=== PATIENT | female | born 2000 | race Hispanic/Latino ===

== ENCOUNTER 2021-12-15 23:46 | Day surgery (SDC) | payer OTHER, SELFPAY ==
[2021-12-16 00:20] VITALS: BMI 37.5
== END 2021-12-16 01:09 | disposition home or self-care (01) ==
LOC: CSHLD/OP 23:46
PROVIDERS: ATTEND Obstetrics & Gynecology
DX: O36.8120 Decreased fetal movements, second trimester, not applicable or unspecified (principal); O99.891 Other specified diseases and conditions complicating pregnancy; R10.2 Pelvic and perineal pain; Z3A.23 23 weeks gestation of pregnancy

== ENCOUNTER 2021-12-19 21:57 | Emergency (ER) | payer OTHER ==
[2021-12-20 14:16] LABS: SARS-CoV-2 PCR by NAA Not Detected (NotDetected)
== END 2021-12-19 23:05 | disposition home or self-care (01) ==
LOC: CSHERS 21:57
DX: J06.9 Acute upper respiratory infection, unspecified (principal); Z20.822 Contact with and (suspected) exposure to COVID-19; Z79.899 Other long term (current) drug therapy
CPT/HCPCS: 87804; 99283; U0003; U0005

== ENCOUNTER 2021-12-21 20:06 | Emergency (ER) | payer MEDICAID | END 2021-12-21 21:09 | disposition home or self-care (01) | LOC: CSHERS 20:06 | DX: O99.512 Diseases of the respiratory system complicating pregnancy, second trimester (principal); J32.1 Chronic frontal sinusitis; O99.891 Other specified diseases and conditions complicating pregnancy; H92.03 Otalgia, bilateral; Z3A.23 23 weeks gestation of pregnancy | CPT/HCPCS: 99283 ==

== ENCOUNTER 2022-04-04 10:16 | Outpatient (CLI) | payer OTHER | END 2022-04-04 10:17 | disposition home or self-care (01) | LOC: CSHLAB 10:16 | PROVIDERS: ATTEND Advanced Practice Midwife | DX: Z20.822 Contact with and (suspected) exposure to COVID-19 (principal) | CPT/HCPCS: 87811 ==

== ENCOUNTER 2022-04-05 18:03 | Inpatient (IN) | payer OTHER ==
[~2022-04-05 18:03] MED LIST: Bupivacaine HCl 0.5%/Epinephrine 1:200,000/PF 30 ml Vial ONE; Bupivacaine/Epinephrine 0.25% 30 ML VIAL ONE; ePHEDrine Sulfate 50 MG/10 ML VIAL ONE
[2022-04-05 18:56] VITALS: BMI 41.0
[2022-04-05] MEDS ORDERED: Ondansetron PF 4 MG/2 ML Vial IVP PRN (20:13)
[2022-04-05] MEDS ORDERED: hydrALAZINE 20 MG/ML VIAL SLOW IVP PRN (20:13)
[2022-04-05] MEDS ORDERED: Ibuprofen 800 MG TAB PO PRN (20:13)
[2022-04-05] MEDS ORDERED: Promethazine HCl 25 MG/ML VIAL IM PRN (20:13)
[2022-04-05] MEDS ORDERED: Butorphanol Tartrate 1 MG/ML VIAL SLOW IVP PRN (20:13)
[2022-04-05] MEDS ORDERED: HYDROcodone/Acetaminophen 5/325 mg Tablet PO PRN (20:13)
[2022-04-05] MEDS ORDERED: Methylergonovine 0.2 MG/ML VIAL IM PRN (20:13)
[2022-04-05] MEDS ORDERED: Lidocaine 1% (PF) 30 ML VIAL SC PRN (20:13)
[2022-04-05] MEDS ORDERED: Diphenoxylate HCl/Atropine Tablet PO PRN (20:13)
[2022-04-05] MEDS ORDERED: Acetaminophen 500 MG TAB PO PRN (20:13)
[2022-04-05] MEDS ORDERED: Misoprostol 200 MCG TAB PR PRN (20:13)
[2022-04-05] MEDS ORDERED: Carboprost 250 MCG/ML AMP IM PRN (20:13)
[2022-04-05] MEDS ORDERED: Penicillin G Potassium 5 MILL.UNITS in Sodium Chloride 0.9% 100 ML IVPB SCH (20:15)
[2022-04-05] MEDS ORDERED: NS w/ Oxytocin 30 units 500 ML IV SCH (20:15)
[2022-04-05] MEDS: Misoprostol 100 MCG TAB VAG SCH (20:33)
[2022-04-05 20:58] LABS: Hemoglobin 10.9 g/dL (12.0-15.5); Mean Corpuscular HGB CONC 32.9 g/dL (32.0-36.0); Mean Corpuscular Hemoglobin 26.8 pg (27.0-33.0); Mean Corpuscular Volume 81.3 fl (81.6-98.3); Mean Platelet Volume 9.8 fl (7.4-10.4); Platelet Count 348 10x3/uL (150-450); RBC Distribution Width 14.9 % (11.5-14.5); Red Blood Cell (RBC) Count 4.07 10x6/uL (3.90-5.03); White Blood Cell (WBC) Count 10.4 10x3/uL (3.5-10.5)
[2022-04-05 21:29] LABS: Syphilis Antibody Nonreactive (Nonreactive); Syphilis Antibody Index 0.08 S/CO (<1.00 Non-Reactive)
[2022-04-05 21:29] LABS: Hep B Surf Ag Non-Reactive S/CO (NonReactive)
[2022-04-05 21:43] LABS: HBSAg Index 0.24 S/CO (0-0.99)
[2022-04-06] MEDS: Penicillin G 2.5 MILL.units 2.5 MILL.UNITS in Premix Bag 1 BAG IVPB SCH ×6 (00:40→22:06)
[2022-04-06] MEDS: Misoprostol 100 MCG TAB VAG SCH ×3 (01:56→05:40)
[2022-04-06] MEDS ORDERED: Fentanyl 2 mcg/Bup 0.1% Cadd 100 ML ONE (10:14)
[2022-04-06] MEDS ORDERED: diphenhydrAMINE 50 MG/ML VIAL IVP PRN (11:10)
[2022-04-06] MEDS ORDERED: Ondansetron PF 4 MG/2 ML Vial IVP PRN (11:10)
[2022-04-06] MEDS ORDERED: ePHEDrine Sulfate 50 MG/10 ML VIAL SLOW IVP PRN (11:10)
[2022-04-06] MEDS ORDERED: Lactated Ringer's 500 ML IV PRN (11:10)
[2022-04-06] MEDS ORDERED: Naloxone HCl 0.4 mg/ml Vial IVP PRN ×2 (11:10)
[2022-04-06] MEDS ORDERED: Promethazine HCl 25 MG/ML VIAL IM PRN (11:10)
[2022-04-06] MEDS ORDERED: Moisturizing Cream (Eucerin) 113 GM JAR TOP PRN (11:10)
[2022-04-06] MEDS ORDERED: Communication Order-Pharmacy FS SCH (11:15)
[2022-04-06] MEDS ORDERED: Fentanyl 100 MCG/2 ML VIAL ONE (11:30)
[2022-04-06] MEDS: Fentanyl 2 mcg/Bupivacaine 0.1% Cassette 100 ML EPIDURAL SCH ×2 (16:47→23:30)
[2022-04-06] MEDS ORDERED: Famotidine/PF 20 mg/2ml Vial ONE (19:20)
[2022-04-06] MEDS ORDERED: CEFAZOLIN 2 GM VIAL ONE (19:20)
[2022-04-07] MEDS: Penicillin G 2.5 MILL.units 2.5 MILL.UNITS in Premix Bag 1 BAG IVPB SCH (02:13)
[2022-04-07] MEDS ORDERED: Lidocaine 1% (PF) 30 ML VIAL ONE (04:06)
[2022-04-07] MEDS ORDERED: Misoprostol 200 MCG TAB ONE (04:55)
[2022-04-07] MEDS ORDERED: Carboprost 250 MCG/ML AMP ONE (04:56)
[2022-04-07] MEDS ORDERED: Methylergonovine 0.2 MG/ML VIAL ONE (04:56)
[2022-04-07] MEDS ORDERED: Tranexamic Acid 1,000 MG/10 ML VIAL ONE (04:59)
[2022-04-07] MEDS ORDERED: Bisacodyl 10 MG SUPP PR PRN (05:35)
[2022-04-07] MEDS ORDERED: hydrALAZINE 20 MG/ML VIAL SLOW IVP PRN (05:35)
[2022-04-07] MEDS ORDERED: Ondansetron PF 4 MG/2 ML Vial IVP PRN (05:35)
[2022-04-07] MEDS ORDERED: NS w/ Oxytocin 30 units 500 ML IV SCH (05:35)
[2022-04-07] MEDS ORDERED: Milk Of Magnesia 30 ML UDCUP PO PRN (05:35)
[2022-04-07] MEDS ORDERED: Promethazine HCl 25 MG/ML VIAL IM PRN (05:35)
[2022-04-07] MEDS ORDERED: diphenhydrAMINE 25 MG CAP PO PRN (05:35)
[2022-04-07 05:44] LABS: Hemoglobin 12.5 g/dL (12.0-15.5); Mean Corpuscular HGB CONC 32.4 g/dL (32.0-36.0); Mean Corpuscular Hemoglobin 26.4 pg (27.0-33.0); Mean Corpuscular Volume 81.6 fl (81.6-98.3); Platelet Count 250 10x3/uL (150-450); RBC Distribution Width 15.8 % (11.5-14.5); Red Blood Cell (RBC) Count 4.73 10x6/uL (3.90-5.03); White Blood Cell (WBC) Count 18.7 10x3/uL (3.5-10.5)
[2022-04-07 05:55] LABS: INR-International Normal Ratio 0.9; PTT 24.6 sec (22.0-33.0); Prothrombin Time 9.3 sec (9.5-12.1)
[2022-04-07] MEDS ORDERED: Diphenoxylate HCl/Atropine Tablet PO SCH (06:00)
[2022-04-07] MEDS: Ibuprofen 800 MG TAB PO SCH ×3 (06:21→21:11)
[2022-04-07] MEDS: Prenatal Vitamin 1 TAB PO SCH (09:39)
[2022-04-07] MEDS: Docusate 100 MG CAP PO SCH ×2 (09:42→21:11)
[2022-04-07] MEDS: Acetaminophen 325 MG TAB PO PRN (13:08)
[2022-04-08] MEDS: Ibuprofen 800 MG TAB PO SCH ×3 (05:16→21:30)
[2022-04-08] MEDS: Ferrous Sulfate 325 MG TAB PO SCH ×2 (09:03→16:38)
[2022-04-08] MEDS: Docusate 100 MG CAP PO SCH ×2 (09:10→21:30)
[2022-04-08] MEDS: Prenatal Vitamin 1 TAB PO SCH (09:10)
[2022-04-08] MEDS: Acetaminophen 325 MG TAB PO PRN ×2 (09:11→16:09)
[2022-04-09] MEDS: Ibuprofen 800 MG TAB PO SCH (05:53)
[2022-04-09] MEDS: Ferrous Sulfate 325 MG TAB PO SCH ×2 (07:08→07:12)
[2022-04-09] MEDS: Misoprostol 100 MCG TAB VAG SCH (07:13)
[2022-04-09] MEDS: Penicillin G 2.5 MILL.units 2.5 MILL.UNITS in Premix Bag 1 BAG IVPB SCH (07:13)
[2022-04-09] MEDS: Docusate 100 MG CAP PO SCH (07:49)
[2022-04-09] MEDS: Prenatal Vitamin 1 TAB PO SCH (07:49)
[2022-04-09 07:52] VITALS: BP 129/72; TEMP 98
== END 2022-04-09 11:45 | disposition home or self-care (01) | DRG 806 ==
LOC: CSHLD 18:03 → CSHPP 04-07 18:10
PROVIDERS: ADMIT Student in an Organized Health Care Education/Training Program; ATTEND Student in an Organized Health Care Education/Training Program
PROC: 10907ZC Drainage of Amniotic Fluid, Therapeutic from Products of Conception, Via Natural or Artificial Opening (ICD-10-PCS; 2022-04-06)
PROC: 10H07YZ Insertion of Other Device into Products of Conception, Via Natural or Artificial Opening (ICD-10-PCS; 2022-04-06)
PROC: 3E033VJ Introduction of Other Hormone into Peripheral Vein, Percutaneous Approach (ICD-10-PCS; 2022-04-06)
PROC: 10E0XZZ Delivery of Products of Conception, External Approach (ICD-10-PCS; principal; 2022-04-07)
DX: O24.420 Gestational diabetes mellitus in childbirth, diet controlled (principal); O72.1 Other immediate postpartum hemorrhage; Z37.0 Single live birth; Z3A.39 39 weeks gestation of pregnancy; Z79.899 Other long term (current) drug therapy; F32.A Depression, unspecified; O99.344 Other mental disorders complicating childbirth; O77.0 Labor and delivery complicated by meconium in amniotic fluid; O99.824 Streptococcus B carrier state complicating childbirth; O32.8XX0 Maternal care for other malpresentation of fetus, not applicable or unspecified; Z20.822 Contact with and (suspected) exposure to COVID-19
CPT/HCPCS: 36415; 36416; 51702; 85027; 85384; 85610; 85730; 86780; 86850; 86900; 86901; 87340; 87811; J0595; J2210; J2405; J2540; J2590; J3490

== ENCOUNTER 2022-04-12 03:05 | Emergency (ER) | payer OTHER ==
[2022-04-12 03:55] LABS: #Eosinphils 0.4 10x3/uL (0.0-0.5); #Monocytes 0.6 10x3/uL (0.0-1.1); #Neutrophils 6.1 10x3/uL (1.5-8.4); %Basophils 0.3 % (0.0-2.0); %Eosinophils 3.4 % (0.0-6.0); %Lymphocytes 31.4 % (18.0-47.0); %Monocytes 5.5 % (0.0-10.0); %Neutrophils 58.4 % (40.0-75.0); Mean Corpuscular HGB CONC 32.4 g/dL (32.0-36.0); Mean Corpuscular Hemoglobin 27.2 pg (27.0-33.0); Mean Corpuscular Volume 84.2 fl (81.6-98.3); Platelet Count 410 10x3/uL (150-450); RBC Distribution Width 15.9 % (11.5-14.5); Red Blood Cell (RBC) Count 3.67 10x6/uL (3.90-5.03); White Blood Cell (WBC) Count 10.5 10x3/uL (3.5-10.5)
[2022-04-12 04:09] LABS: ALT (SGPT) 24 U/L (8-55); AST (SGOT) 47 U/L (5-34); Albumin 2.7 g/dL (3.5-5.0); Alkaline Phosphatase 142 U/L (40-110); Anion Gap 12 mmol/L (10-20); BUN (Urea Nitrogen) 14 mg/dL (7.0-18.7); Bilirubin, Total 0.2 mg/dL (0.2-1.2); Calc. Creatinine Clearance 0 mL/min (70-130); Calcium 7.9 mg/dL (7.8-10.44); Carbon Dioxide 19 mmol/L (22-29); Chloride 112 mmol/L (98-107); Estimated GFR 129; Globulin 2.9 g/dL (2.4-3.5); Glucose 106 mg/dL (70-105); Potassium 4.2 mmol/L (3.5-5.1); Protein, Total 5.6 g/dL (6.0-8.3); Sodium 139 mmol/L (136-145)
== END 2022-04-12 04:25 | disposition home or self-care (01) ==
LOC: CSHERS 03:05
DX: O90.89 Other complications of the puerperium, not elsewhere classified (principal); R60.0 Localized edema; O90.81 Anemia of the puerperium
CPT/HCPCS: 36415; 80053; 85025; 93005

== ENCOUNTER 2023-12-27 07:24 | Outpatient (CLI) | payer MEDICAID, OTHER ==
[2023-12-27] MEDS ORDERED: Iopamidol 300 61% 100 ML VIAL FS ONE (10:52)
== END 2023-12-27 07:25 | disposition home or self-care (01) ==
LOC: CSHCT 07:24
PROVIDERS: ATTEND Family Medicine
DX: R10.10 Upper abdominal pain, unspecified (principal); R93.421 Abnormal radiologic findings on diagnostic imaging of right kidney
CPT/HCPCS: 74178; Q9967